=== PATIENT | male | born 1980 | race Two or more races ===

== ENCOUNTER 2019-07-26 18:14 | Emergency (ER) | payer OTHER ==
[~2019-07-26] VITALS: Ht 180.3 cm; Wt 136.1 kg
[2019-07-26] MEDS ORDERED: NAPR500T14 PO (21:44)
[2019-07-26] MEDS ORDERED: DUI500 PO (21:44)
== END 2019-07-26 23:06 | disposition home or self-care (01) ==
LOC: ER 18:14
DX: N45.1 Epididymitis (principal); N43.2 Other hydrocele; I86.1 Scrotal varices; N50.812 Left testicular pain

== ENCOUNTER 2024-11-01 13:36 | Emergency (ER) | payer OTHER ==
[~2024-11-01] VITALS: Ht 180.3 cm; Wt 163.3 kg
[~2024-11-01 13:36] MED LIST: DUI500 PO; NAPR500T14 PO
[2024-11-01 14:29] VITALS: BP 138/87; O2SAT 100
[2024-11-01] MEDS ORDERED: GUAIFENESIN/DEXTROMETHORPHAN 10ML BLIST.PACK PO ONE ×2 (15:30→16:07)
[2024-11-01] MEDS ORDERED: CETIRIZINE HCL 5 MG/5 ML ML PO ONE (15:30)
[2024-11-01] MEDS ORDERED: ACETAMINOPHEN 500 MG GEL..CAP PO ONE (15:30)
[2024-11-01] MEDS ORDERED: CETIRIZINE HCL 5MG/5ML BLIST.PACK PO ONE (16:07)
[2024-11-01 16:29] LABS: HEMATOCRIT 42.9 % (39.0-48.0); HEMOGLOBIN 14.2 g/dL (13-16.00); MEAN CELL VOLUME 82.8 fL (80.0-100.00); MEAN CORPUSCULAR HEMOGLOBIN 27.5 pg (27.00-32.0); MEAN CORPUSCULAR HGB CONC 33.2 g/dl (32.0-36.0); PLATELET COUNT 204 K/uL (150-450); RED BLOOD COUNT 5.17 M/uL (4.00-6.00); RED CELL DISTRIBUTION WIDTH 14.8 % (11.5-14.5)
[2024-11-01] MEDS ORDERED: OSELTAMIVIR PHOSPHATE 75 MG CAPSULE PO ONE ×2 (16:42→16:45)
[2024-11-01] MEDS ORDERED: OSEL75CA PO (17:27)
[2024-11-01] MEDS ORDERED: ZYRTEC10 MG PO (17:27)
[2024-11-01] MEDS ORDERED: QC TUSSIN DM L118 ML PO (17:27)
== END 2024-11-01 17:42 | disposition home or self-care (01) ==
LOC: ER 13:39
PROVIDERS: General Practice
DX: R53.81 Other malaise (principal); J10.1 Influenza due to other identified influenza virus with other respiratory manifestations; R50.9 Fever, unspecified; Z20.822 Contact with and (suspected) exposure to COVID-19